=== PATIENT | male | born 1975 | race Caucasian/White ===

== ENCOUNTER 2017-02-05 10:45 | Emergency (ER) | payer OTHER, MEDICAID ==
[~2017-02-05] VITALS: Ht 172.7 cm; Wt 79.0 kg
[2017-02-05 10:51] VITALS: BP 131/63
--- NOTE | 2017-02-05 10:55 | NUR ---
PT AA&OX4 WITH EVEN AND STEADY GAIT; RR EVEN/UNLABORED; PT TO LOBBY AWAITING OPEN BED.
--- NOTE | 2017-02-05 14:24 | NUR ---
Patient to OF1 at this time.
--- NOTE | 2017-02-05 14:41 | NUR ---
PT STATES HE WAS AT HOME LAST NIGHT WHEN HE SPIKED A 105 TEMP. HE SAYS HIS GIRLFRIEND CAME OVER TO HIS HOUSE AND HELPED BRING HIS FEVER DOWN. STATES BURNING PAIN IN CHEST WHEN BREATHING DEEPLY. PT HAS NO RESPIRATORY DISTRESS AT THIS TIME. SITTING IN CHAIR AWKE, A&O X4. NOTIFIED. MELITA TO MONITOR.
[2017-02-05] MEDS ORDERED: cefTRIAXone 1,000 MG VIAL ONE (15:14)
[2017-02-05] MEDS ORDERED: LIDOCAINE 2% 1000 MG/50 ML VIAL INJ ONE (15:23)
[2017-02-05] MEDS: ACETAMIN/CODEINE 120/12MG-5ML 5 ML UDC PO ONE (15:25)
[2017-02-05] MEDS: cefTRIAXone 1,000 MG in LIDOCAINE 1% ***ER ONLY *** 2.1 ML IM ONE (15:26)
[2017-02-05 16:18] VITALS: BP 131/70
--- NOTE | 2017-02-05 16:19 | NUR ---
Patient discharged with v/s stable. Written and verbal after care instructions given and explained. Patient alert, oriented and verbalized understanding of instructions. Ambulatory with steady gait. All questions addressed prior to discharge. ID band removed. Patient advised to follow up with PMD. Rx of AZITHROMYCIN, NAPROSYN, AND GUAIATUSSIN given. Patient educated on indication of medication including possible reaction and side effects. Opportunity to ask questions provided and answered.
== END 2017-02-05 16:19 | disposition home or self-care (01) ==
LOC: MED 10:45
DX: J18.9 Pneumonia, unspecified organism (principal)
CPT/HCPCS: 93005; 96372; 99284; J0696; J2001